=== PATIENT | female | born 1995 | race Two or more races ===

== ENCOUNTER 2017-12-01 14:27 | Emergency (ER) | payer BC, MEDICAID ==
[2017-12-01] MEDS ORDERED: Aspirin 81 MG Tab.Chew PO ONE (14:30)
--- NOTE | 2017-12-04 11:24 | CR ---
INDICATION: Right chest wall pain. CHEST: PA and lateral views of the chest were obtained 12/01/2017 - no comparisons. Minimal dextroconvex scoliosis of the upper middle thoracic spine is noted. Heart, mediastinum, and bony thorax were otherwise unremarkable. An active infiltrate or effusion was not identified. However, there is noted bronchial wall cuffing, which is more prominent on the right in the lower lung field and which could represent active peribronchial disease - correlate clinically. IMPRESSION: 1. Bronchial wall cuffing in right greater than left lower lung field, could represent active peribronchial disease - correlate clinically. 2. Mild scoliosis. MTDD
--- NOTE | 2017-12-05 07:46 | ER ---
DATE SEEN: 12/01/2017 TIME SEEN: The patient was seen at 1500 hours. HISTORY OF PRESENT ILLNESS: This 22-year-old with onset of chest pain after she was through with her nap this afternoon. She had pain on deep end inspiration. It has been on just today. Has not been doing any heavy lifting. Works in a daycare. 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 It caused right-sided chest discomfort. She denies fever, shortness of breath, cough, or dyspnea on exertion, but noticed end inspiratory chest wall discomfort. PAST MEDICAL HISTORY: Uses Ritalin for ADHD, otherwise does not have diabetes, hypertension, or serious illnesses. FAMILY HISTORY: Negative. ALLERGIES: Sulfa. MEDICATIONS: 1. Methylphenidate. 2. Ritalin 60 mg daily. REVIEW OF SYSTEMS: Otherwise negative except for noted above. GI: Negative. : Negative. 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 Denies any form of contraception. PHYSICAL EXAMINATION: VITAL SIGNS: Blood pressure 142/79, heart rate is 84, respirations 18, oxygen saturation 100%. HEENT: Alert, pleasant woman, in no acute distress. PERRLA intact. Pharynx without abnormality. NECK: Supple without thyromegaly or masses in the neck or bruits. No cervical adenopathy. No accessory muscle breathing. No tracheal tug. No tracheal deviation. LUNGS: Clear to auscultation. Right chest wall is tender to ribs 3, 4, 5, 6 with costochondral joint. Minimal sternal chondral joint. Left chest is negative. ABDOMEN: Nontender. No masses. No organomegaly. No bruits. Bowel sounds normal. No CVA percussion tenderness. EXTREMITIES: Pedal pulses intact. Capillary refill is normal. X-rays without abnormality. Chest, no evidence for pneumothorax or rib fracture or infiltrate. ASSESSMENT: Costochondritis 3, 4, 5, 6 ribs. LABORATORY FINDINGS: Normal hemogram, D-dimer is normal and normal troponin as well as calcium slightly low 8.4, albumin is normal at 3.6, otherwise complete metabolic panel is normal. EKG is normal. PLAN: The patient dismissed. Use ibuprofen 600 mg 4 times a day or Naprosyn as needed. Follow up with a doctor in a week. Increase activity as tolerated. She has been advised that she may have chest pain on and off for a long time because the rib joints are moving all the time with respirations. /[id number] JESSIKA/BREEZY
== END 2017-12-01 17:06 | disposition home or self-care (01) ==
LOC: FB.ED 14:27
DX: M94.0 Chondrocostal junction syndrome [Tietze] (principal); Z88.2 Allergy status to sulfonamides
CPT/HCPCS: 36415; 71046; 80053; 84484; 85025; 85379; 93005; 99285; A9270

== ENCOUNTER 2018-08-18 10:47 | Emergency (ER) | payer MEDICAID ==
--- NOTE | 2018-08-18 11:53 | EDM.PDOC ---
ED HPI GENERAL MEDICAL PROBLEM - General Chief Complaint: Chest Pain Stated Complaint: CHEST PAIN WHEN BREATHING Time Seen by Provider: 08/18/18 11:25 Source of Information: Reports: Patient History Limitations: Reports: No Limitations - History of Present Illness INITIAL COMMENTS - FREE TEXT/NARRATIVE: 23-year-old healthy woman onset 1-2 days ago right chest wall discomfort no history of :trauma, heavy lifting, falling, unusual exuberance with intercourse , shortness of breath, fever, sore throat or upper respiratory lower respiratory symptoms, palpitations, diaphoresis, lightheadedness, abdominal discomfort hepatitis or gastrointestinal symptoms. Right chest Pain Score (Numeric/FACES): 8 - Related Data Allergies Allergy/AdvReac Type Severity Reaction Status Date / Time Sulfa (Sulfonamide Allergy Hives Verified 08/18/18 11:05 Antibiotics) Home Meds: Home Meds Methylphenidate [Ritalin] 60 mg PO DAILY 12/01/17 [History] Past Medical History HEENT History: Reports: Impaired Vision, Other (See Below) Other HEENT History: Eyeglasses Respiratory History: Reports: Asthma RN ON SITE History: Reports: Other RN ON SITE History: Neurological History: Reports: Migraines Psychiatric History: Reports: ADHD, Anxiety - Infectious Disease History Infectious Disease History: Reports: Chicken Pox Social & Family History - Family History Family Medical History: Noncontributory - Tobacco Use Smoking Status *Q: Light Tobacco Smoker Years of Tobacco use: 5 Packs/Tins Daily: 0.1 Second Hand Smoke Exposure: Yes - Caffeine Use Caffeine Use: Reports: Soda - Recreational Drug Use Recreational Drug Use: No ED ROS GENERAL - Review of Systems Review Of Systems: ROS reveals no pertinent complaints other than HPI. : Reports: Other (Last menstrual period yesterday. Not using any contraception. Is sexually active) ED EXAM, GENERAL - Physical Exam Exam: See Below Free Text/Narrative:: Pleasant healthy well muscled well-nourished woman in mild distress. Exam Limited By: No Limitations General Appearance: Alert, WD/WN, Mild Distress Eye Exam: Bilateral Eye: Normal Inspection Ears: Normal External Exam Ear Exam: Bilateral Ear: Auricle Normal, Canal Normal, TM normal Nose: Normal Inspection Throat/Mouth: Normal Inspection, Normal Lips, Normal Teeth, Normal Gums, Normal Oropharynx Head: Atraumatic, Normocephalic Neck: Normal Inspection, Supple, Non-Tender, Full Range of Motion Respiratory/Chest: No Respiratory Distress, Lungs Clear, Normal Breath Sounds, No Accessory Muscle Use, Chest Non-Tender, Other (Moderate right ribs 678 costochondral discomfort with pressure. Reproducible, pain nonradiating.) Cardiovascular: Normal Peripheral Pulses, Regular Rate, Rhythm Peripheral Pulses: 1+: Radial (L), Radial (R) GI/Abdominal: Normal Bowel Sounds, Soft, Non-Tender, No Organomegaly (Female) Exam: Deferred Rectal (Female) Exam: Deferred Back Exam: Normal Inspection Extremities: Normal Inspection Neurological: Alert, Oriented, CN II-XII Intact, Normal Cognition Psychiatric: Normal Affect Skin Exam: Warm, Dry Course - Vital Signs Last Recorded V/S: Last Vital Signs Temp 36.9 C 08/18/18 11:05 Pulse 71 08/18/18 11:05 Resp 16 08/18/18 11:05 BP 128/92 H 08/18/18 11:05 Pulse Ox 100 08/18/18 11:05 Departure - Departure Time of Disposition: 11:45 (Right costochondritis) Disposition: Home, Self-Care 01 Condition: Good Clinical Impression: Costochondritis, acute - Discharge Information *PRESCRIPTION DRUG MONITORING PROGRAM REVIEWED*: Not Applicable *COPY OF PRESCRIPTION DRUG MONITORING REPORT IN PATIENT TRISTIAN: Not Applicable Referrals: PCP,None [Primary Care Provider] -
[2018-08-18] MEDS ORDERED: Indomethacin 25 MG Cap PO ONE (11:54)
== END 2018-08-18 12:08 | disposition home or self-care (01) ==
LOC: FB.ED 10:47
DX: M94.0 Chondrocostal junction syndrome [Tietze] (principal); F17.210 Nicotine dependence, cigarettes, uncomplicated; Z88.2 Allergy status to sulfonamides; Z79.899 Other long term (current) drug therapy
CPT/HCPCS: 99284; A9270

== ENCOUNTER 2023-09-24 10:50 | Emergency (ER) | payer SELFPAY ==
[2023-09-24] MEDS: Ibuprofen 800 MG Tab PO ONE (11:18)
== END 2023-09-24 12:43 | disposition home or self-care (01) ==
LOC: FB.ED 10:50
DX: S46.911A Strain of unspecified muscle, fascia and tendon at shoulder and upper arm level, right arm, initial encounter (principal); Z88.2 Allergy status to sulfonamides; Z86.19 Personal history of other infectious and parasitic diseases; W10.8XXA Fall (on) (from) other stairs and steps, initial encounter
CPT/HCPCS: 73030-RT; 99283; A9270-GY